=== PATIENT | male | born 1955 | race African-American/Black ===

== ENCOUNTER 2024-12-14 15:10 | Emergency (ER) | payer MEDICARE, MEDICAID ==
[~2024-12-14] VITALS: Ht 185.4 cm; Wt 81.0 kg
[2024-12-14 15:23] VITALS: O2SAT 99
[2024-12-14] MEDS: KETOROLAC 30MG/ML VIAL IM ONE (18:54)
[2024-12-14] MEDS: ACETAMINOPHEN 325MG TABLET PO ONE (18:54)
[2024-12-14] MEDS ORDERED: TOPUD MT (19:24)
[2024-12-14] MEDS ORDERED: CYCL10TA21 MT (19:24)
[2024-12-14] MEDS ORDERED: NAPR-677 MT (19:24)
[2024-12-14 19:57] VITALS: BP 191/86; PULSE 70; RESP 18; TEMP 37; O2SAT 99
== END 2024-12-14 19:58 | disposition home or self-care (01) ==
LOC: ER 15:10
DX: S16.1XXA Strain of muscle, fascia and tendon at neck level, initial encounter (principal); S39.011A Strain of muscle, fascia and tendon of abdomen, initial encounter; S39.012A Strain of muscle, fascia and tendon of lower back, initial encounter; I10 Essential (primary) hypertension; Z88.0 Allergy status to penicillin; V49.9XXA Car occupant (driver) (passenger) injured in unspecified traffic accident, initial encounter; Y93.89 Activity, other specified; Y92.89 Other specified places as the place of occurrence of the external cause; Y99.8 Other external cause status
CPT/HCPCS: 99283; J1885

== ENCOUNTER 2025-04-11 20:42 | Inpatient (IN) | payer MEDICARE, MEDICAID ==
[~2025-04-11] VITALS: Ht 188 cm; Wt 73.5 kg
[~2025-04-11 20:42] MED LIST: CHOL400D7 PO; CYCL10TA21 MT; HYDR-4001 MT; LISI10TA26 MT; NAPR-677 MT; TOPUD MT
[2025-04-11 21:47] LABS: BASOPHILS % 1.4 % (0.0-2.0); EOSINOPHILS % 4.1 % (0.0-5.0); HEMATOCRIT. 31.4 % (42.0-52.0); HEMOGLOBIN. 10.3 g/dL (14.0-18.0); LYMPHOCYTES % 19.2 % (20.0-50.0); MEAN PLATELET VOLUME 9.4 fl (7.4-10.4); MONOCYTES % 7.5 % (2.0-8.0); NEUTROPHILS % 67.8 % (40.0-76.0); PLATELET 287 x1000/uL (130-400); RED BLOOD CELL COUNT 3.52 mill/uL (4.7-6.1); RED CELL DISTRIBUTION WIDTH 15.5 % (11.6-14.6)
[2025-04-11 22:15] LABS: UREA NITROGEN BLOOD 15 mg/dL (9-23)
[2025-04-11 22:16] LABS: TROPONIN I HIGH SENSITIVITY < 4 ng/L (3.0-53)
[2025-04-11 22:28] LABS: CREATININE 1.7 mg/dL (0.6-1.3)
[2025-04-12] VITALS (8 sets, daily range): BP systolic 121–180; BP diastolic 54–97; PULSE 50–68; RESP 16–20; TEMP 36.5–37.1; O2SAT 96–100
[2025-04-12] MEDS ORDERED: DOCUSATE SODIUM 100MG CAPSULE PO PRN (01:30)
[2025-04-12] MEDS ORDERED: DEXTROSE 50% WATER 50ML SYRINGE IV PRN ×2 (01:30→02:00)
[2025-04-12] MEDS ORDERED: IPRATROPIUM/ALBUTEROL 0.5-3(2.5)MG/3ML NEB HHN PRN (01:30)
[2025-04-12] MEDS ORDERED: ONDANSETRON HCL 4MG/2ML INJ IV PRN (01:30)
[2025-04-12] MEDS ORDERED: ACETAMINOPHEN 325MG TABLET PO PRN ×2 (01:30)
[2025-04-12] MEDS: INSULIN LISPRO 100 UNITS/ML SUBCUT SCH (06:47)
[2025-04-12] MEDS: BLOOD SUGAR DIAGNOSTIC STRIP TEST SCH ×2 (06:47→07:10)
[2025-04-12] MEDS: AMLODIPINE 10MG TABLET PO SCH (08:08)
[2025-04-12] MEDS: ASPIRIN 81MG TABLET PO SCH (08:08)
[2025-04-12] MEDS: ENOXAPARIN 40MG/0.4ML SYR SUBCUT SCH (08:08)
[2025-04-12 13:11] LABS: FOLIC ACID (FOLATE) SERUM 12.28 ng/mL (>5.38)
[2025-04-12 13:12] LABS: VITAMIN B12 SERUM 321 pg/mL (211-911)
[2025-04-12 17:41] LABS: CLARITY URINE CLEAR (CLEAR); COLOR URINE YELLOW (YELLOW); GLUCOSE URINE NEGATIVE (NEGATIVE); KETONES URINE NEGATIVE (NEGATIVE); LEUKOCYTE ESTERASE URINE NEGATIVE (NEGATIVE); NITRITE URINE NEGATIVE (NEGATIVE); OCCULT BLOOD URINE NEGATIVE (NEGATIVE); PH URINE 7.5 (4.5-8.0); PROTEIN URINE NEGATIVE (NEGATIVE); SPECIFIC GRAVITY URINE 1.012 (1.005-1.030); UROBILINOGEN URINE 0.2 E.U./dL (0.2-1.0)
[2025-04-12 17:50] LABS: SODIUM URINE RANDOM 83.0 mEq/L
[2025-04-12 17:58] LABS: CREATININE URINE RANDOM 83.5 mg/dL
[2025-04-12 18:41] LABS: *AMPHETAMINES SCREEN URINE NEGATIVE (NEGATIVE); *BARBITURATES SCREEN URINE NEGATIVE (NEGATIVE); *BENZODIAZEPINES SCREEN URINE NEGATIVE (NEGATIVE); *COCAINE SCREEN URINE NEGATIVE (NEGATIVE); METHADONE URINE SCREEN NEGATIVE (NEGATIVE)
[2025-04-12 18:42] LABS: CANNABINOID URINE SCREEN PRESUMPTIVE POSITIVE (NEGATIVE); ECSTASY MDMA SCREEN URINE NEGATIVE (NEGATIVE); OPIATES URINE SCREEN NEGATIVE (NEGATIVE); PHENCYCLIDINE URINE SCREEN NEGATIVE (NEGATIVE)
[2025-04-12 19:12] LABS: OSMOLALITY URINE 400.0 mOsm/kg (500-850)
[2025-04-12] MEDS: HYDRALAZINE 20MG/ML VIAL IV PRN (21:27)
[2025-04-13 04:00] VITALS: BP 153/78; PULSE 65; RESP 20; TEMP 36.7; O2SAT 96
[2025-04-13 08:00] VITALS: BP_SYST 143; BP_SYST 154; BP_SYST 158; BP_DIAS 49; BP_DIAS 71; BP_DIAS 88; PULSE 68; RESP 16; TEMP 36.6; O2SAT 99
[2025-04-13 08:10] LABS: BASOPHILS % 1.1 % (0.0-2.0); EOSINOPHILS % 3.9 % (0.0-5.0); LYMPHOCYTES % 18.6 % (20.0-50.0); MEAN PLATELET VOLUME 9.8 fl (7.4-10.4); MONOCYTES % 5.8 % (2.0-8.0); NEUTROPHILS % 70.6 % (40.0-76.0); PLATELET 322 x1000/uL (130-400); RED BLOOD CELL COUNT 4.17 mill/uL (4.7-6.1); RED CELL DISTRIBUTION WIDTH 15.4 % (11.6-14.6)
[2025-04-13 08:11] LABS: CREATININE 1.3 mg/dL (0.6-1.3)
[2025-04-13 08:12] LABS: HEMOGLOBIN. 12.1 g/dL (14.0-18.0); UREA NITROGEN BLOOD 10 mg/dL (9-23)
[2025-04-13 08:13] LABS: HEMATOCRIT. 37.2 % (42.0-52.0)
[2025-04-13 08:14] LABS: PHOSPHORUS 2.9 mg/dL (2.5-4.9)
[2025-04-13 08:17] LABS: T4 FREE 0.95 ng/dL (0.89-1.76)
[2025-04-13 12:00] VITALS: BP 136/64; PULSE 55; RESP 14; TEMP 36.4; O2SAT 100
[2025-04-13 16:00] VITALS: BP 142/58; PULSE 58; RESP 15; TEMP 36.7; O2SAT 99
[2025-04-13] MEDS: ENOXAPARIN 40MG/0.4ML SYR SUBCUT SCH (18:00)
[2025-04-13] MEDS: SODIUM CHLORIDE 0.9% 1,000 ML IV SCH (18:19)
[2025-04-13] MEDS: PANTOPRAZOLE 40MG DR TABLET PO SCH (18:19)
[2025-04-13 20:00] VITALS: BP_SYST 128; BP_SYST 130; BP_SYST 132; BP_DIAS 56; BP_DIAS 58; BP_DIAS 60; PULSE 54; RESP 16; TEMP 36.7; O2SAT 98
[2025-04-14] VITALS (8 sets, daily range): BP systolic 120–160; BP diastolic 46–107; PULSE 55–70; RESP 12–18; TEMP 36.4–36.8; O2SAT 97–100
[2025-04-14 07:43] LABS: BASOPHILS % 1.4 % (0.0-2.0); EOSINOPHILS % 4.5 % (0.0-5.0); HEMATOCRIT. 37.1 % (42.0-52.0); HEMOGLOBIN. 12.4 g/dL (14.0-18.0); LYMPHOCYTES % 19.3 % (20.0-50.0); MEAN PLATELET VOLUME 10.0 fl (7.4-10.4); MONOCYTES % 8.3 % (2.0-8.0); NEUTROPHILS % 66.5 % (40.0-76.0); PLATELET 314 x1000/uL (130-400); RED BLOOD CELL COUNT 4.19 mill/uL (4.7-6.1); RED CELL DISTRIBUTION WIDTH 15.3 % (11.6-14.6)
[2025-04-14 07:55] LABS: CREATININE 1.4 mg/dL (0.6-1.3); TRIGLYCERIDE 141 mg/dL (0-150); UREA NITROGEN BLOOD 11 mg/dL (9-23)
[2025-04-14 07:56] LABS: LDL CHOLESTEROL 89 mg/dL (5-100)
[2025-04-14 07:57] LABS: PHOSPHORUS 2.7 mg/dL (2.5-4.9)
[2025-04-14 09:10] LABS: *CREATININE RANDOM URINE 84.2 mg/dL (Not Estab.); MICROALBUMIN RANDOM URINE 10.9 ug/mL (Not Estab.); MICROALBUMIN/CREATININE RATIO 13.0 mg/g creat (0-29)
[2025-04-14 09:36] LABS: CLARITY URINE CLEAR (CLEAR); COLOR URINE YELLOW (YELLOW); GLUCOSE URINE NEGATIVE (NEGATIVE); KETONES URINE NEGATIVE (NEGATIVE); LEUKOCYTE ESTERASE URINE NEGATIVE (NEGATIVE); NITRITE URINE NEGATIVE (NEGATIVE); OCCULT BLOOD URINE NEGATIVE (NEGATIVE); PH URINE 7.5 (4.5-8.0); PROTEIN URINE NEGATIVE (NEGATIVE); SPECIFIC GRAVITY URINE 1.012 (1.005-1.030); UROBILINOGEN URINE 0.2 E.U./dL (0.2-1.0)
[2025-04-15] VITALS: BP 147/78; PULSE 58; RESP 19; TEMP 36.4; O2SAT 100
[2025-04-15 04:00] VITALS: BP 131/67; PULSE 58; RESP 19; TEMP 36.6; O2SAT 99
[2025-04-15] MEDS ORDERED: AMLO10TA80 PO ×2 (14:04→14:07)
[2025-04-15] MEDS ORDERED: ASPI-1160 PO ×2 (14:04→14:07)
[2025-04-15 15:11] VITALS: BP 132/67; PULSE 68; TEMP 97.6; O2SAT 98
== END 2025-04-15 16:05 | disposition home or self-care (01) | DRG 684 ==
LOC: ER 20:42 → 8WST 04-12 00:16 → EDBEDREQ 04-12 00:18 → EDBEDREQTM 04-12 00:18 → EDBEDREQDT 04-12 00:18 → ENRESERV 04-12 00:34
PROVIDERS: ADMIT Internal Medicine; ATTEND Internal Medicine
PROC: 4A00X4Z Measurement of Central Nervous Electrical Activity, External Approach (ICD-10-PCS; principal; 2025-04-14)
DX: N17.0 Acute kidney failure with tubular necrosis (principal); R55 Syncope and collapse; E78.5 Hyperlipidemia, unspecified; I10 Essential (primary) hypertension; R00.1 Bradycardia, unspecified; N28.1 Cyst of kidney, acquired; N40.0 Benign prostatic hyperplasia without lower urinary tract symptoms; Z79.4 Long term (current) use of insulin; Z79.82 Long term (current) use of aspirin; Z79.899 Other long term (current) drug therapy; Z86.73 Personal history of transient ischemic attack (TIA), and cerebral infarction without residual deficits; Z88.0 Allergy status to penicillin; E11.65 Type 2 diabetes mellitus with hyperglycemia; I65.21 Occlusion and stenosis of right carotid artery
CPT/HCPCS: 36415; 71045; 76770; 80048; 80061; 80305; 81003; 82043; 82570; 82607; 82728; 82746; 82962; 83036; 83540; 83550; 83735; 83880; 83930; 83935; 84100; 84300; 84439; 84443; 84484; 85025; 85379; 93005; 93970; 95816; 99285; A4606; J0360; J1650; J7030

== ENCOUNTER 2025-06-10 16:20 | Emergency (ER) | payer MEDICARE, MEDICAID ==
[~2025-06-10] VITALS: Ht 188 cm; Wt 82.0 kg
[~2025-06-10 16:20] MED LIST changes: +AMLO10TA80 PO; +ASPI-1160 PO; -CYCL10TA21 MT; -HYDR-4001 MT; -LISI10TA26 MT; -NAPR-677 MT; -TOPUD MT
[2025-06-10 16:26] VITALS: TEMP 37; O2SAT 100
[2025-06-10] MEDS ORDERED: ACET-2708 MT (17:45)
[2025-06-10 18:03] VITALS: TEMP 98.6
[2025-06-10] MEDS: ACETAMINOPHEN 500MG TABLET PO ONE (18:03)
[2025-06-10] MEDS: HYDROCODONE/ACETAMINOPHEN 5/325MG TABLET PO ONE (18:50)
[2025-06-10] MEDS ORDERED: BO1 TP (19:41)
[2025-06-10 19:47] VITALS: BP 140/71; PULSE 53; RESP 12; O2SAT 97
== END 2025-06-10 19:49 | disposition home or self-care (01) ==
LOC: ER 16:30
DX: S62.655A Nondisplaced fracture of middle phalanx of left ring finger, initial encounter for closed fracture (principal); E11.9 Type 2 diabetes mellitus without complications; I10 Essential (primary) hypertension; Z86.73 Personal history of transient ischemic attack (TIA), and cerebral infarction without residual deficits; Z88.0 Allergy status to penicillin; X58.XXXA Exposure to other specified factors, initial encounter; Y93.89 Activity, other specified; Y92.89 Other specified places as the place of occurrence of the external cause; Y99.8 Other external cause status
CPT/HCPCS: 29130; 73120; 99283; 99284

== ENCOUNTER 2025-07-03 16:22 | Emergency (ER) | payer MEDICARE, MEDICAID ==
[~2025-07-03] VITALS: Ht 182.9 cm; Wt 77.0 kg
[~2025-07-03 16:22] MED LIST changes: +BO1 TP
[2025-07-03 16:24] VITALS: O2SAT 98
[2025-07-03] MEDS ORDERED: ACET-2708 MT (18:04)
[2025-07-03 18:24] VITALS: BP 144/107; PULSE 78; RESP 14; TEMP 36.7; O2SAT 99
== END 2025-07-03 18:25 | disposition home or self-care (01) ==
LOC: ER 16:22
DX: S62.625A Displaced fracture of middle phalanx of left ring finger, initial encounter for closed fracture (principal); S62.607A Fracture of unspecified phalanx of left little finger, initial encounter for closed fracture; E11.9 Type 2 diabetes mellitus without complications; I10 Essential (primary) hypertension; Z86.73 Personal history of transient ischemic attack (TIA), and cerebral infarction without residual deficits; X58.XXXA Exposure to other specified factors, initial encounter; Y93.89 Activity, other specified; Y92.89 Other specified places as the place of occurrence of the external cause; Y99.8 Other external cause status
CPT/HCPCS: 99283; 73130; A6449